=== PATIENT | female | born 1965 | race Caucasian/White ===

== ENCOUNTER 2021-08-04 20:20 | Emergency (ER) | payer OTHER ==
[~2021-08-04 20:20] MED LIST: COZAAR50 MG PO
[2021-08-04 22:13] LABS: EOSINOPHIL 3.2 % (0-5); HCT 41.9 % (37.0-47.0); HGB 13.9 g/dl (12.5-16.0); LYMPHOCYTE 33.5 % (15-48); MCH 30.3 pg (25.0-31.0); MCHC 33.2 g/dL (32.0-36.0); MCV 91.5 fL (78.0-100.0); MONOCYTE 7.8 % (0-12); MPV 9.3 fL (6.0-9.5); NEUTROPHIL 54.3 % (41-80); NRBC 0; PLT 325 K/uL (150-400); RBC 4.58 M/uL (4.20-5.40); WBC 9.3 K/uL (4.0-10.5)
[2021-08-04 22:31] LABS: BUN/CREAT RATIO (CALC) 20.8 RATIO; CREATININE 0.77 mg/dL (0.51-0.95); POTASSIUM 3.8 mmol/L (3.5-5.1)
[2021-08-04] MEDS ORDERED: NORVASC5 MG PO (23:19)
[2021-08-05] MEDS ORDERED: NORVASC5 MG PO (00:24)
== END 2021-08-05 00:34 | disposition home or self-care (01) ==
LOC: FER 20:20
PROVIDERS: Physician Assistant
DX: I10 Essential (primary) hypertension (principal)
CPT/HCPCS: 36415; 80048; 85025